=== PATIENT | female | born 1985 | race Caucasian/White ===

== ENCOUNTER 2017-12-22 08:47 | Emergency (ER) | payer OTHER ==
--- NOTE | 2017-12-22 09:30 | ED ---
Abdominal Pain HPI - General Chief Complaint: Abdominal Pain Stated Complaint: vomiting/diarrhea Time Seen by Provider: 12/22/17 09:00 Source: patient Mode of arrival: ambulatory - History of Present Illness Initial Comments: 32 year old female presents for diarrhea x 5 hours. She woke up at 0400 and vomited three times. She has had diarrhea 6-7 times since then. Describes the diarrhea as watery, and denies blood or mucus in the stool. States she has abdominal cramping that was worse this morning and is progressively improving. She also seems to be having BMs less frequently than she was this morning. She has not had a BM for the past 2 hours and has not vomited since 4 am. Denies difficulty urinating or pain/burning with urination. She denies having been around sick contacts, nursing homes, hospitals. No recent antibiotic use. 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 Last night she had a taco salad from a restaurant for dinner that she agrees could have caused her food poisoning. - Related Data Home Medications Medication Instructions Recorded Confirmed No Known Home Medications [No 12/22/17 12/22/17 Known Home Medications] Allergies Allergy/AdvReac Type Severity Reaction Status Date / Time No Known Allergies Allergy Verified 12/22/17 09:31 Review of Systems ROS Statement: Those systems with pertinent positive or pertinent negative responses have been documented in the HPI. ROS Other: All systems not noted in ROS Statement are negative. Past Medical History Past Medical History: No Reported History History of Any Multi-Drug Resistant Organisms: None Reported Past Surgical History: No Surgical Hx Reported Past Psychological History: No Psychological Hx Reported Smoking Status: Never smoker Past Alcohol Use History: Rare Past Drug Use History: None Reported General Exam Limitations: no limitations General appearance: alert, in no apparent distress Head exam: Present: atraumatic, normocephalic Eye exam: Present: normal appearance, PERRL, EOMI. Absent: scleral icterus, conjunctival injection, periorbital swelling ENT exam: Present: normal exam, mucous membranes moist Respiratory exam: Present: normal lung sounds bilaterally. Absent: respiratory distress, wheezes, rales, rhonchi, stridor Cardiovascular Exam: Present: regular rate, normal rhythm, normal heart sounds. Absent: systolic murmur, diastolic murmur, rubs, gallop, clicks GI/Abdominal exam: Present: soft, tenderness, normal bowel sounds. Absent: distended, guarding, rebound, rigid Psychiatric exam: Present: normal affect, normal mood Course Vital Signs 12/22/17 08:51 Temperature 98.4 F Pulse Rate 98 Respiratory 18 Rate Blood Pressure 130/79 O2 Sat by Pulse 100 Oximetry Medical Decision Making - Medical Decision Making 32 year old female presents with vomiting x 3 and diarrhea x 6 that started this morning at 0400. Vomiting has since subsided and she has only had one BM in the past 4 hours, which was formed. CBC and CMP came back WNL. CDiff can't be run due to formed stool. Patient states she is feeling better now and cramping has improved slightly. She is going home on return precautions and is told to stay hydrated by drinking fluids. - Lab Data Result diagrams: 12/22/17 09:34 12/22/17 09:34 Lab Results 12/22/17 12/22/17 Range/Units 09:34 09:34 WBC 9.2 (3.8-10.6) k/uL RBC 3.89 (3.80-5.40) m/uL Hgb 12.6 (11.4-16.0) gm/dL Hct 38.4 (34.0-46.0) % MCV 98.6 (80.0-100.0) fL MCH 32.5 (25.0-35.0) pg MCHC 32.9 (31.0-37.0) g/dL RDW 12.0 (11.5-15.5) % Plt Count 230 (150-450) k/uL Neutrophils % 81 % Lymphocytes % 8 % Monocytes % 7 % Eosinophils % 2 % Basophils % 0 % Neutrophils # 7.4 (1.3-7.7) k/uL Lymphocytes # 0.8 L (1.0-4.8) k/uL Monocytes # 0.6 (0-1.0) k/uL Eosinophils # 0.2 (0-0.7) k/uL Basophils # 0.0 (0-0.2) k/uL Sodium 142 (137-145) mmol/L Potassium 3.8 (3.5-5.1) mmol/L Chloride 108 H (98-107) mmol/L Carbon Dioxide 24 (22-30) mmol/L Anion Gap 10 mmol/L BUN 19 H (7-17) mg/dL Creatinine 0.54 (0.52-1.04) mg/dL Est GFR (MDRD) Af Amer >60 (>60 ml/min/1.73 sqM) Est GFR (MDRD) Non-Af >60 (>60 ml/min/1.73 sqM) Glucose 98 (74-99) mg/dL Calcium 8.7 (8.4-10.2) mg/dL Total Bilirubin 1.0 (0.2-1.3) mg/dL AST 17 (14-36) U/L ALT 27 (9-52) U/L Alkaline Phosphatase 70 (38-126) U/L Total Protein 6.3 (6.3-8.2) g/dL Albumin 3.6 (3.5-5.0) g/dL Disposition Clinical Impression: Viral enteritis Disposition: HOME SELF-CARE Instructions: Enteritis (ED) Additional Instructions: Return to ER if symptoms worse or do not improve. Referrals: None,Stated [Primary Care Provider] - 1-2 days
[2017-12-22 09:49] LABS: Basophils % (A) 0 %; Eosinophils # (A) 0.2 k/uL (0-0.7); Eosinophils % (A) 2 %; HCT 38.4 % (34.0-46.0); HGB 12.6 gm/dL (11.4-16.0); Lymphocytes # (A) 0.8 k/uL (1.0-4.8); Lymphocytes % (A) 8 %; MCH 32.5 pg (25.0-35.0); MCHC 32.9 g/dL (31.0-37.0); MCV 98.6 fL (80.0-100.0); Mean Platelet Volume 7.7; Monocytes # (A) 0.6 k/uL (0-1.0); Monocytes % (A) 7 %; Neutrophils # (A) 7.4 k/uL (1.3-7.7); Neutrophils % (A) 81 %; Platelet Count 230 k/uL (150-450); RBC 3.89 m/uL (3.80-5.40); WBC 9.2 k/uL (3.8-10.6)
[2017-12-22 10:00] LABS: ALT 27 U/L (9-52); AST 17 U/L (14-36); Albumin 3.6 g/dL (3.5-5.0); Alkaline Phosphatase 70 U/L (38-126); Anion Gap 10 mmol/L; Blood Urea Nitrogen 19 mg/dL (7-17); Calcium 8.7 mg/dL (8.4-10.2); Carbon Dioxide 24 mmol/L (22-30); Chloride 108 mmol/L (98-107); Glucose 98 mg/dL (74-99); Potassium 3.8 mmol/L (3.5-5.1); Sodium 142 mmol/L (137-145); Total Protein 6.3 g/dL (6.3-8.2)
[2017-12-22] MEDS ORDERED: ONDANSETRON 4 MG ODT STARTER PACK 2 TAB BTL PO STA (10:52)
[2017-12-22 11:10] VITALS: BP 110/69; PULSE 74; RESP 16; TEMP 97.9
== END 2017-12-22 11:10 | disposition home or self-care (01) ==
LOC: EC 08:47
DX: A08.4 Viral intestinal infection, unspecified (principal)
CPT/HCPCS: 36415; 80053; 85025; 87324; 87045; 87046; 99284; S0119

== ENCOUNTER 2018-06-28 15:30 | Emergency (ER) | payer OTHER ==
[2018-06-28 15:50] VITALS: BP 131/83; PULSE 91; RESP 18; TEMP 98.3
[2018-06-28] MEDS ORDERED: PENICILLIN V POTASSIUM 250 MG TAB PO STA (16:14)
--- NOTE | 2018-06-28 16:22 | ED ---
ENT HPI - General Chief complaint: Dental/Oral Stated complaint: dental abscess Time Seen by Provider: 06/28/18 16:04 Source: patient, RN notes reviewed Mode of arrival: ambulatory Limitations: no limitations - History of Present Illness Initial comments: This is a 32-year-old female who presents to the emergency department with chief complaint of a dental abscess. Patient reports left lower dental pain and mass for the past couple of days. Patient states that she does not have a dentist. She does state that she has had a fever. 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 Denies any other injuries. Denies chills, chest pain shortness of breath, abdominal pain, nausea or vomiting. - Related Data Previous Rx's Medication Instructions Recorded Penicillin V Potassium [Pen Vee K] 500 mg PO QID 10 Days tab 06/28/18 Allergies Allergy/AdvReac Type Severity Reaction Status Date / Time No Known Allergies Allergy Verified 06/28/18 15:48 Review of Systems ROS Statement: Those systems with pertinent positive or pertinent negative responses have been documented in the HPI. ROS Other: All systems not noted in ROS Statement are negative. Past Medical History Past Medical History: No Reported History History of Any Multi-Drug Resistant Organisms: None Reported Past Surgical History: No Surgical Hx Reported Past Psychological History: No Psychological Hx Reported Smoking Status: Never smoker Past Alcohol Use History: Rare Past Drug Use History: None Reported General Exam - General Exam Comments Initial Comments: General: Awake and alert, well-developed; in no apparent distress. HEENT: Head atraumatic, normocephalic. Pupils are equal, round and reactive to light. Extraocular movements intact. Oropharynx moist without erythema or exudate. Poor dentition throughout with multiple dental caries. Tenderness on palpation of tooth #19. There are no areas of fluctuance noted along the gumline. There is a small palpable mass without fluctuance when palpating along left lower mandible. Neck: Supple. Normal ROM. Cardiovascular: Regular rate and rhythm. No murmurs, rubs or gallops. Chest symmetrical. Respiratory: Lungs clear to auscultation bilaterally. No wheezes, rales or rhonchi. Normal respiratory effort with no use of accessory muscles. Musculoskeletal: Normal ROM, no tenderness bilateral upper and lower extremities. Ambulating normally. Skin: [place], warm and dry without rashes or lesions. Neurological: Alert and oriented x3. CN II-XII grossly intact. Speech is fluent and answers are appropriate. No focal neuro deficits. Psychiatric: Normal mood and affect. No overt signs of depression or anxiety noted. Limitations: no limitations Course Vital Signs 06/28/18 15:46 Temperature 98.3 F Pulse Rate 91 Respiratory 18 Rate Blood Pressure 131/83 O2 Sat by Pulse 98 Oximetry Medical Decision Making - Medical Decision Making This is a 32-year-old female who presents to the emergency department with chief complaint of dental abscess. Patient reports left lower dental pain and a mass on palpation along the left mandible. On physical examination, patient has poor dentition throughout. There is tenderness on palpation of tooth #19 with no areas of fluctuance noted. Patient started on penicillin VK. Recommended ibuprofen. Recommended following up with the dentist as she probably has an abscess at the root of the tooth. Vitals are stable and patient is in no acute distress. She will be discharged home at this time. She is in agreement with plan and voices understanding. All questions were answered. Disposition Clinical Impression: Dental abscess Disposition: HOME SELF-CARE Condition: Good Instructions: Dental Abscess (ED) Additional Instructions: Please take medications as prescribed. Please follow up with a dentist as soon as possible. Please follow up with primary care provider within 1-2 days. Return to emergency department if symptoms should worsen or any concerns arise. Please follow up with the [facility] dental [facility]. [address] [place] [address]. Phone number for new patients or [phone] for existing patients. Prescriptions: Penicillin V Potassium [Pen Vee K] 500 mg PO QID 10 Days tab Is patient prescribed a controlled substance at d/c from ED?: No Referrals: None,Stated [Primary Care Provider] - 1-2 days Time of Disposition: 16:21
== END 2018-06-28 16:34 | disposition home or self-care (01) ==
LOC: EC 15:30
DX: K04.7 Periapical abscess without sinus (principal); K08.89 Other specified disorders of teeth and supporting structures; K02.9 Dental caries, unspecified
CPT/HCPCS: 99282

== ENCOUNTER 2018-07-26 19:51 | Emergency (ER) | payer OTHER ==
[2018-07-26 20:09] VITALS: BP 134/84; PULSE 100; RESP 20; TEMP 98.6
[2018-07-26] MEDS ORDERED: TOBRAMYCIN 0.3% OPHTH DROPS 5 ML BTL BOTH EYES STA (20:42)
--- NOTE | 2018-07-26 20:43 | ED ---
Eye Problem HPI - General Chief complaint: Eye Problems Stated complaint: eye draining/itching Time Seen by Provider: 07/26/18 20:10 Source: patient, family Mode of arrival: ambulatory Limitations: no limitations - History of Present Illness Initial comments: 33-year-old female patient presents to the emergency department today for evaluation of bilateral eye itching, redness, and drainage. Patient states last 2 mornings when she woke up her eyes were crusted shut. States that today she developed redness to the both eyes. She denies any fever, chills, cough, nasal congestion, or nasal drainage. Denies any history of environmental ALLERGIES or similar symptoms. Denies any sick contacts. Patient denies any recent rash, shortness breath, chest pain, abdominal pain, nausea, vomiting, diarrhea, constipation, back pain, numbness, tingling, dizziness, weakness, hematuria, dysuria, urinary urgency, urinary frequency, headache, visual changes , or any other complaints. - Related Data Home Medications Medication Instructions Recorded Confirmed Ibuprofen [Advil] 400 mg PO Q8HR PRN 07/26/18 07/26/18 Naphazoline HCl/Glycerin [Clear 15 ml BOTH EYES DAILY 07/26/18 07/26/18 Eyes Max Redness Rlf Drp] Allergies Allergy/AdvReac Type Severity Reaction Status Date / Time No Known Allergies Allergy Verified 07/26/18 20:16 Review of Systems ROS Statement: Those systems with pertinent positive or pertinent negative responses have been documented in the HPI. ROS Other: All systems not noted in ROS Statement are negative. Past Medical History Past Medical History: No Reported History History of Any Multi-Drug Resistant Organisms: None Reported Past Surgical History: No Surgical Hx Reported Past Psychological History: No Psychological Hx Reported Smoking Status: Never smoker Past Alcohol Use History: Rare Past Drug Use History: None Reported General Exam Limitations: no limitations General appearance: alert, in no apparent distress, other (This is a well- developed, well-nourished adult female patient in no acute distress. Vital signs upon presentation are temperature 98.6F, pulse 100, respirations 20, blood pressure 134/84, pulse ox 99% on room air.) Eye exam: Present: normal appearance, PERRL, EOMI. Absent: scleral icterus, conjunctival injection, periorbital swelling ENT exam: Present: normal exam, normal oropharynx, mucous membranes moist Respiratory exam: Present: normal lung sounds bilaterally. Absent: respiratory distress, wheezes, rales, rhonchi, stridor Cardiovascular Exam: Present: regular rate, normal rhythm, normal heart sounds. Absent: systolic murmur, diastolic murmur, rubs, gallop, clicks Neurological exam: Present: alert, oriented X3, CN II-XII intact Psychiatric exam: Present: normal affect, normal mood Skin exam: Present: warm, dry, intact, normal color. Absent: rash Course Vital Signs 07/26/18 20:07 Temperature 98.6 F Pulse Rate 100 Respiratory 20 Rate Blood Pressure 134/84 O2 Sat by Pulse 99 Oximetry Medical Decision Making - Medical Decision Making 33-year-old female patient presented to the emergency department today for evaluation of bilateral eye redness, itching, and drainage. Physical examination was relatively unremarkable. Eye exam is normal at this time. 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 We did discuss possibility of ALLERGIC conjunctivitis. She is instructed take oral ALLERGY medication. She'll be given tobramycin eyedrops to use 4 times daily while awake. She is instructed to follow-up with ophthalmology for symptoms don 't improve over the next 1-2 days. Return parameters discussed in detail. She verbalizes understanding and agrees with this plan. Disposition Clinical Impression: Conjunctivitis Disposition: HOME SELF-CARE Condition: Good Instructions: Conjunctivitis (ED) Additional Instructions: Do 1 drop to each eye every 4-6 hours while awake. Follow-up with ophthalmology for symptoms don't improve over the next 1-2 days. Consider taking an oral ALLERGY medication. Return here immediately for any new, worsening, or concerning symptoms. Is patient prescribed a controlled substance at d/c from ED?: No Referrals: None,Stated [Primary Care Provider] - 1-2 days Sanjay Andrea MD [STAFF PHYSICIAN] - 1-2 days Time of Disposition: 20:43
== END 2018-07-26 21:03 | disposition home or self-care (01) ==
LOC: EC 19:51
DX: H10.9 Unspecified conjunctivitis (principal); Z79.899 Other long term (current) drug therapy
CPT/HCPCS: 99283

== ENCOUNTER 2018-10-01 10:07 | Emergency (ER) | payer OTHER ==
[2018-10-01 10:19] VITALS: RESP 18
--- NOTE | 2018-10-01 11:21 | ED ---
General Adult HPI - General Chief complaint: Skin/Abscess/Foreign Body Stated complaint: rash Time Seen by Provider: 10/01/18 10:45 Source: patient, RN notes reviewed Mode of arrival: ambulatory Limitations: no limitations - History of Present Illness Initial comments: Patient 33-year-old female presenting to the emergency room today with a chief complaint of a rash over the last week. She does admit that it started down by her toes. She states she was told it was athlete's foot. She's tried some topical cream but has become worse. She states her ankles are swollen there is increased itchiness coming up to the knees bilaterally. Also a few spots on her forearms bilaterally. Patient states she's tried some [id number] medications with little relief. 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 Patient unsure if it's related. She denies any other ALLERGIES. Patient denies any recent fever, chills, shortness of breath, chest pain, back pain, abdominal pain, nausea or vomiting, numbness or tingling, headaches or visual changes, or any other complaints. - Related Data Home Medications Medication Instructions Recorded Confirmed Calamine/Zinc Oxide Lotion 1 applic TOPICAL QID PRN 10/01/18 10/01/18 [Calamine Lotion] Previous Rx's Medication Instructions Recorded Mupirocin 2% Oint [Bactroban Oint] 1 applic TOPICAL TID #1 gm 10/01/18 Sulfamethox-Tmp 800-160Mg [Bactrim 1 tab PO Q12HR #20 tab 10/01/18 DS 800-160 mg] diphenhydrAMINE [Benadryl] 1 - 2 tab PO Q6HR PRN #30 capsule 10/01/18 predniSONE 50 mg PO DAILY #5 tab 10/01/18 Allergies Allergy/AdvReac Type Severity Reaction Status Date / Time No Known Allergies Allergy Verified 10/01/18 10:52 Review of Systems ROS Statement: Those systems with pertinent positive or pertinent negative responses have been documented in the HPI. ROS Other: All systems not noted in ROS Statement are negative. Past Medical History Past Medical History: No Reported History History of Any Multi-Drug Resistant Organisms: None Reported Past Surgical History: No Surgical Hx Reported Past Psychological History: No Psychological Hx Reported Smoking Status: Never smoker Past Alcohol Use History: Rare Past Drug Use History: None Reported General Exam - General Exam Comments Initial Comments: General: The patient is awake and alert, in no distress, and does not appear acutely ill. Eye: Pupils are equal, round and reactive to light, extra-ocular movements are intact. No nystagmus. There is normal conjunctiva bilaterally. No signs of icterus. Ears, nose, mouth and throat: There are moist mucous membranes and no oral lesions. Musculoskeletal: Normal ROM, no tenderness. Strength 5/5. Sensation intact. Pulses equal bilaterally 2+. Neurological: A&O x 3. CN II-XII intact, There are no obvious motor or sensory deficits. Coordination appears grossly intact. Speech is normal. Skin: Patient does have an erythematous rash to the lower legs bilaterally. This excoriated from itching. A few spots seen to the forearms. Small papular like lesions. Some crusting over the top on the right. Psychiatric: Cooperative, appropriate mood & affect, normal judgment. Limitations: no limitations Course Vital Signs 10/01/18 10:17 Temperature 98.1 F Pulse Rate 96 Respiratory 18 Rate Blood Pressure 128/67 O2 Sat by Pulse 99 Oximetry Medical Decision Making - Medical Decision Making Patient will be started on antibiotics, steroids, Benadryl for her symptoms. Symptoms seem to be a contact dermatitis with secondary infection. Patient advised follow-up bulk gas specialist over the next 2 days return if symptoms increase or worsen. Disposition Clinical Impression: Contact dermatitis Disposition: HOME SELF-CARE Condition: Good Instructions: Contact Dermatitis (ED) Additional Instructions: Please use medication as discussed. Please follow-up with bulk gas specialist/family doctor in the next 2 days of symptoms have not improved. Please return to emergency room if the symptoms increase or worsen or for any other concerns. Prescriptions: diphenhydrAMINE [Benadryl] 1 - 2 tab PO Q6HR PRN #30 capsule PRN Reason: Allergic Reaction Mupirocin 2% Oint [Bactroban Oint] 1 applic TOPICAL TID #1 gm predniSONE 50 mg PO DAILY #5 tab Sulfamethox-Tmp 800-160Mg [Bactrim DS 800-160 mg] 1 tab PO Q12HR #20 tab Is patient prescribed a controlled substance at d/c from ED?: No Referrals: None,Stated [Primary Care Provider] - 1-2 days Mallika Michelle MD [STAFF PHYSICIAN] - 1-2 days Time of Disposition: 11:20
[2018-10-01 11:49] VITALS: BP 135/89; PULSE 78; TEMP 98.2
== END 2018-10-01 11:47 | disposition home or self-care (01) ==
LOC: EC 10:07
DX: L25.9 Unspecified contact dermatitis, unspecified cause (principal)
CPT/HCPCS: 99282

== ENCOUNTER 2019-07-06 10:48 | Emergency (ER) | payer OTHER ==
[2019-07-06 11:02] VITALS: BP 141/83; PULSE 82; RESP 18; TEMP 98.2
[2019-07-06] MEDS ORDERED: PENICILLIN VK 500MG STARTER 4 TAB BTL PO STA (11:39)
[2019-07-06] MEDS ORDERED: ACET/COD 300 MG/30 MG STARTER PACK 6 TAB BTL PO STA (11:39)
--- NOTE | 2019-07-06 11:39 | ED ---
ENT HPI - General Chief complaint: Dental/Oral Stated complaint: Dental Pain/headache Time Seen by Provider: 07/06/19 11:05 Source: patient, RN notes reviewed, old records reviewed Mode of arrival: ambulatory Limitations: no limitations - History of Present Illness Initial comments: Patient is a 34 year old female with one week of dental pain. She reports that she has broken her lower right molars and is having pain from them. She states that she has no trismus, fever. She does not have a dentist. - Related Data Previous Rx's Medication Instructions Recorded Penicillin V Potassium [Pen Vee K] 500 mg PO QID #40 tablet 07/06/19 Allergies Allergy/AdvReac Type Severity Reaction Status Date / Time No Known Allergies Allergy Verified 07/06/19 11:07 Review of Systems ROS Statement: Those systems with pertinent positive or pertinent negative responses have been documented in the HPI. ROS Other: All systems not noted in ROS Statement are negative. Constitutional: Denies: fever, chills Eyes: Denies: eye pain ENT: Reports: dental pain Respiratory: Denies: cough Cardiovascular: Denies: chest pain Endocrine: Denies: fatigue Gastrointestinal: Denies: nausea Skin: Denies: rash Neurological: Denies: headache Hematological/Lymphatic: Denies: easy bleeding Past Medical History Past Medical History: No Reported History History of Any Multi-Drug Resistant Organisms: None Reported Past Surgical History: No Surgical Hx Reported Past Psychological History: No Psychological Hx Reported Smoking Status: Never smoker Past Alcohol Use History: Occasional Past Drug Use History: None Reported General Exam - General Exam Comments Initial Comments: 34 year old female, no distress. Limitations: no limitations General appearance: alert, in no apparent distress Head exam: Present: atraumatic, normocephalic, normal inspection Eye exam: Present: normal appearance, PERRL, EOMI. Absent: scleral icterus, conjunctival injection, periorbital swelling ENT exam: Present: normal exam, mucous membranes moist. Absent: normal oropharynx (broken lower right molar. Multiple dental caries throughout all teeth. Gingival erythema tooth 23.) Neck exam: Present: normal inspection. Absent: tenderness, meningismus, lymphadenopathy Respiratory exam: Present: normal lung sounds bilaterally. Absent: respiratory distress, wheezes, rales, rhonchi, stridor Cardiovascular Exam: Present: regular rate, normal rhythm, normal heart sounds. Absent: systolic murmur, diastolic murmur, rubs, gallop, clicks GI/Abdominal exam: Present: soft, normal bowel sounds. Absent: distended, tenderness, guarding, rebound, rigid Psychiatric exam: Present: normal affect, normal mood Skin exam: Present: warm, dry, intact, normal color. Absent: rash Course Vital Signs 07/06/19 10:59 Temperature 98.2 F Pulse Rate 82 Respiratory 18 Rate Blood Pressure 141/83 O2 Sat by Pulse 97 Oximetry Medical Decision Making - Medical Decision Making 34 year old female with right lower dental pain. She has broken teeth and gingival irriatiton on tooth 23. Patient advised to follow up with dentist. Given starter pack for pain medication and Pen V K. Discussed return parameters. Disposition Clinical Impression: Dental caries, Broken tooth Disposition: HOME SELF-CARE Condition: Good Instructions (If sedation given, give patient instructions): Toothache (ED) Additional Instructions: [facility] [address] [place] [address] [phone] (existing clients only) For new clients: [phone] 1st consult: $50 (includes Xrays) Usually 30% less then private dentist for visits after. [facility] [employer] [facility] Have to pay $50 for Xrays anmd rest is covered. [phone] Prescriptions: Penicillin V Potassium [Pen Vee K] 500 mg PO QID #40 tablet Is patient prescribed a controlled substance at d/c from ED?: No Referrals: None,Stated [Primary Care Provider] - 1-2 days Time of Disposition: 11:39
== END 2019-07-06 11:56 | disposition home or self-care (01) ==
LOC: EC 10:48
DX: K02.9 Dental caries, unspecified (principal); S02.5XXA Fracture of tooth (traumatic), initial encounter for closed fracture; X58.XXXA Exposure to other specified factors, initial encounter
CPT/HCPCS: 99283

== ENCOUNTER 2019-12-12 07:47 | Emergency (ER) | payer OTHER ==
[2019-12-12 07:59] VITALS: BP 129/77; PULSE 81; RESP 20; TEMP 97.9
[2019-12-12] MEDS ORDERED: IBUPROFEN 600 MG STARTER PACK 4 TAB BTL PO STA (08:08)
[2019-12-12] MEDS ORDERED: ACET/COD 300 MG/30 MG STARTER PACK 6 TAB BTL PO STA (08:08)
[2019-12-12] MEDS ORDERED: PENICILLIN VK 500MG STARTER 4 TAB BTL PO STA (08:10)
--- NOTE | 2019-12-12 08:13 | ED ---
ENT HPI - General Chief complaint: Dental/Oral Stated complaint: Toothache Time Seen by Provider: 12/12/19 08:00 Source: patient, RN notes reviewed Mode of arrival: ambulatory Limitations: no limitations - History of Present Illness Initial comments: 34-year-old female presents emergency Department with chief complaint of right lower dental pain. She states has been on and off bothersome for last 2 weeks but states today the pain was worse and she missed work. Patient reports no fever, chills, night sweats, difficult swallowing or any trismus type symptoms. Patient states that she has poor dentition she currently does not have insurance and has not seen a dentist for this. Patient states that she's had infections in the past denies any known drug ALLERGIES. Patient denies any other complaints at this time. - Related Data Previous Rx's Medication Instructions Recorded Penicillin V Potassium [Pen Vee K] 500 mg PO QID #40 tablet 07/06/19 Penicillin V Potassium [Pen Vee K] 500 mg PO QID #40 tablet 12/12/19 Allergies Allergy/AdvReac Type Severity Reaction Status Date / Time No Known Allergies Allergy Verified 07/06/19 11:07 Review of Systems ROS Statement: Those systems with pertinent positive or pertinent negative responses have been documented in the HPI. ROS Other: All systems not noted in ROS Statement are negative. Past Medical History Past Medical History: No Reported History History of Any Multi-Drug Resistant Organisms: None Reported Past Surgical History: No Surgical Hx Reported Past Psychological History: No Psychological Hx Reported Smoking Status: Never smoker Past Alcohol Use History: Occasional Past Drug Use History: None Reported General Exam Limitations: no limitations General appearance: alert, in no apparent distress Head exam: Present: atraumatic, normocephalic, normal inspection Eye exam: Present: normal appearance, PERRL, EOMI. Absent: scleral icterus, conjunctival injection, periorbital swelling ENT exam: Present: mucous membranes moist. Absent: normal oropharynx (Multiple dental caries, no drainable abscess though there are some erythema and right lower aspect minimal swelling no trismus patient swan secretions well) Neck exam: Present: normal inspection, full ROM. Absent: tenderness, meningismus, lymphadenopathy Respiratory exam: Present: normal lung sounds bilaterally. Absent: respiratory distress, wheezes, rales, rhonchi, stridor Cardiovascular Exam: Present: regular rate, normal rhythm, normal heart sounds. Absent: systolic murmur, diastolic murmur, rubs, gallop, clicks Course Vital Signs 12/12/19 07:53 Temperature 97.9 F Pulse Rate 81 Respiratory 20 Rate Blood Pressure 129/77 O2 Sat by Pulse 100 Oximetry Medical Decision Making - Medical Decision Making 34-year-old presented for dental pain. Patient has poor dentition will be started on Pen-Vee K advised to continue ibuprofen. She is advised about the dental clinic or dentist return parameters were discussed. Disposition Clinical Impression: Toothache, Dental infection Disposition: HOME SELF-CARE Condition: Stable Instructions (If sedation given, give patient instructions): Toothache (ED) Additional Instructions: Please return to the Emergency Department if symptoms worsen or any other concerns.Please follow up with the [facility] dental clinic. [facility] [place] [address]. Phone number for new patients or [phone] for existing patients. Prescriptions: Penicillin V Potassium [Pen Vee K] 500 mg PO QID #40 tablet Is patient prescribed a controlled substance at d/c from ED?: No Referrals: None,Stated [Primary Care Provider] - 1-2 days Time of Disposition: 08:13
== END 2019-12-12 08:14 | disposition home or self-care (01) ==
LOC: EC 07:47
DX: K04.7 Periapical abscess without sinus (principal)
CPT/HCPCS: 99282

== ENCOUNTER 2023-05-29 14:14 | Emergency (ER) | payer OTHER ==
[2023-05-29 14:21] VITALS: RESP 16
--- NOTE | 2023-05-29 14:31 | ED ---
Chest Pain HPI - General Source: patient, RN notes reviewed Mode of arrival: wheelchair Limitations: no limitations - History of Present Illness MD Complaint: chest pain <Angeles Shipman - Last Filed: 05/29/23 14:30> - General Source: patient, family, RN notes reviewed, old records reviewed <Casron Ruiz - Last Filed: 05/29/23 18:18> - General Chief Complaint: Chest Pain Stated Complaint: Chest Pain Time Seen by Provider: 05/29/23 14:28 - History of Present Illness Initial Comments: This is a 37-year-old female who presents emergency department for chest pain. States that this is on the right side of her chest. There is no radiation of the pain. Denies any associated shortness of breath. Also denies any cardiac history. (Angeles Shipman) Patient is a 37-year-old female with past medical history remarkable for anxiety who presents emergency Department complaining of right-sided chest pain. He has been ongoing since Thursday. Is currently Thursday. States worse with deep inspiration. Worse with palpation. Worse when laying down in certain positions. Seems to come and go, however has not fully gone away. He is not expresses before. Is concerned maybe her heart. Also endorses being anxious at this time as well. Denies any shortness of breath. Denies any fevers, chills, cough, abdominal pain, nausea, vomiting. No known sick contacts. No history of blood clots in herself or family members. Denies any lower extremity edema. No recent long distance travel. Is not on blood thinners. Present for further evaluation at this time. Patient was originally evaluated as a quick note in triage. Workup was started while the patient was in triage.Denies any trauma to the chest. (Carson Ruiz) - Related Data Home Medications Medication Instructions Recorded Confirmed Aspirin 324 mg PO ONCE PRN 05/29/23 05/29/23 Allergies Allergy/AdvReac Type Severity Reaction Status Date / Time No Known Allergies Allergy Verified 05/29/23 18:02 Review of Systems ROS Other: All systems not noted in ROS Statement are negative. <Angeles Shipman - Last Filed: 05/29/23 14:30> ROS Other: All systems not noted in ROS Statement are negative. <Carson Ruiz - Last Filed: 05/29/23 18:18> ROS Statement: Those systems with pertinent positive or pertinent negative responses have been documented in the HPI. Review of Systems: CONST: Denies fever EYES: Denies blurry vision ENT: Denies nasal congestion C/V: Endorses chest wall pain RESP: Denies shortness of breath GI: Denies abdominal pain : Denies dysuria SKIN: Denies rash. MSK: Denies joint pain. NEURO: Denies headache (Carson Ruiz) EKG Findings - EKG Comments: EKG Findings:: 12-lead Electrocardiogram Interpretation Note. EKG was reviewed and interpreted by myself. 12-lead ECG performed at 1428 is interpreted by me as revealing normal sinus rhythm at a rate of 68 beats per minute. [place] is rightward deviated. IA interval is 119 ms, QRS duration is 80 ms, QTc is 419 ms.. There were no ST or T wave abnormalities to suggest myocardial ischemia or injury. R wave progression across the precordium was satisfactory. By my interpretation this EKG is non-diagnostic for acute ischemia. - EKG Results: EKG: interpreted by ERMD <Carson Ruiz - Last Filed: 05/29/23 18:18> Past Medical History Past Medical History: No Reported History History of Any Multi-Drug Resistant Organisms: None Reported Past Surgical History: No Surgical Hx Reported Past Psychological History: No Psychological Hx Reported Smoking Status: Former smoker, Never smoker Past Alcohol Use History: Occasional Past Drug Use History: None Reported <Angeles Shipman - Last Filed: 05/29/23 14:30> General Exam Limitations: no limitations <Angeles Shipman - Last Filed: 05/29/23 14:30> <Carson Ruiz - Last Filed: 05/29/23 18:18> - General Exam Comments Initial Comments: Visual Physical Exam Vital signs reviewed General: Well-appearing, nontoxic, no acute distress. Head: Normocephalic, atraumatic Eyes: PERRLA, EOMI ENT: Airway patent Chest: Nonlabored breathing Skin: No visual rash, normal skin tone Neuro: Alert and oriented 3 Musculoskeletal: No gross abnormalities (Angeles Shipman) General: Appears in no acute distress. Appears mildly anxious. HEAD: Normal with no signs of head trauma. EYES: PERRLA, EOMI, conjunctiva normal, no discharge. ENT: Hearing grossly intact, normal oropharynx. RESPIRATORY: Clear breath sounds bilaterally. No wheezes, rales, or rhonchi. C/V: Regular rate and rhythm. S1 and S2 auscultated, no edema, peripheral pulses 2+ and intact throughout ABD: Abd is soft, nontender, nondistended EXT: Normal range of motion, no obvious deformity. Patient has reproducible sternal as well as just to the right of the sternal chest pain. I suspect chest wall pain, possible costochondritis or chest wall strain. SKIN: No rashes or lesions observed on exposed skin. NEURO: Alert and oriented 4. No focal deficits. (Carson Ruiz) Course Vital Signs 05/29/23 05/29/23 05/29/23 14:18 16:48 16:49 Temperature 97.8 F 98.7 F Pulse Rate 70 62 Respiratory 16 16 Rate Blood Pressure 150/90 136/88 136/88 O2 Sat by Pulse 100 100 100 Oximetry 05/29/23 17:30 Temperature 98.1 F Pulse Rate 78 Respiratory Rate Blood Pressure 150/102 O2 Sat by Pulse 100 Oximetry Chest Pain MDM <Angeles Shipman - Last Filed: 05/29/23 14:30> <Carson Ruiz - Last Filed: 05/29/23 18:18> - MDM I performed the QuickNote portion of this chart. Signed Angeles Shipman PA-C. (nAgeles Shipman) Was pt. sent in by a medical professional or institution ([facility]ITT[facility] Dowell, JEWEL[facility] ENAMELER, urgent care, hospital, or [place] [facility] [place] facility...) When possible be specific @ -No Did you speak to anyone other than the patient for history (EMS, parent, family, police, friend...)? What history was obtained from this source @ -No Did you review nursing and triage notes (agree or disagree)? Why? @ -I reviewed and agree with nursing and triage notes Were old charts reviewed (outside hosp., previous admission, EMS record, old EKG, old radiological studies, urgent care reports/EKG's, [place] health [facility] facility records)? Report findings @ -Reviewed quick note from earlier. Differential Diagnosis (chest pain, altered mental status, abdominal pain women, abdominal pain men, vaginal bleeding, weakness, fever, dyspnea, syncope, headache, dizziness, GI bleed, back pain, seizure, CVA, palpatations, mental health, musculoskeletal)? @ -Differential Chest Pain: Stable Angina, Unstable Angina, STEMI, NSTEMI Aortic Dissection, Pneumothorax, Musculoskeletal, Esophageal Spasm GERD, Cholecystitis, Pancreatitis, Zoster, this is not meant to be an all-inclusive list. EKG interpreted by me (3pts min.). @ -As above X-rays interpreted by me (1pt min.). @ -Chest x-ray reveals no obvious acute cardio or process. CT interpreted by me (1pt min.). @ -None done U/S interpreted by me (1pt. min.). @ -None done What testing was considered but not performed or refused? (CT, X-rays, U/S, labs)? Why? @ -None What meds were considered but not given or refused? Why? @ -None Did you discuss the management of the patient with other professionals (professionals i.e. , PA, JEWELRY ENAMELER, lab, RT, psych nurse, social worker palliative care, data warehouse administrator, teacher, disbursing officer, rifle case repairer)? Give summary @ -No Was smoking cessation discussed for >3mins.? @ -No Was critical care preformed (if so, how long)? @ -No Were there social determinants of health that impacted care today? How? (Homelessness, low income, unemployed, alcoholism, drug addiction, transportation, low edu. Level, literacy, decrease access to med. care, m[facility], rehab)? @ -No Was there de-escalation of care discussed even if they declined (Discuss DNR or withdrawal of care, Hospice)? DNR status @ -No What co-morbidities impacted this encounter? (DM, HTN, Smoking, COPD, CAD, Cancer, CVA, ARF, Chemo, Hep., AIDS, mental health diagnosis, sleep apnea, morbid obesity)? @ -None Was patient admitted / discharged? Hospital course, mention meds given and route, prescriptions, significant lab abnormalities, going to OR and other pertinent info. @ -Based on the patient's presentation and physical exam, presents with a pleuritic chest pain that appears to be more of a chest wall pain. Work up was started in triage. This includes troponin, EKG, chest x-ray. Workup is unremarkable. I did discuss with her that it does appear to be chest wall pain as it is reproducible on palpation and with movement. I would like to obtain a screening d-dimer just in case. Pain is been ongoing all week. Patient's heart score is low, at approximately 1. Vital signs within acceptable limits. Patient will be given IV Toradol for pain control. She was in agreement this plan. Patient's pain is improved. She states she does feel extremely anxious regarding this. She has a history of anxiety. Believes it is also playing a role in her symptoms. Patient's d-dimer is within normal limits. I discussed her workup including the undetectable troponin as well as normal d-dimer and normal EKG. I believe is safe for her to be discharged home at this time. She was in agreement this plan. I instructed the patient to follow up with their PCP in the next 1-3 days. I explained that the patient should return to the emergency department if they experience any worsening symptoms. Strict return precautions were discussed with the patient. The patient expressed understanding of these instructions. I answered all questions that the patient had. The patient was discharged home in good condition with their prescriptions and follow up information. Undiagnosed new problem with uncertain prognosis? @ -No Drug Therapy requiring intensive monitoring for toxicity (Heparin, Nitro, Insulin, Cardizem)? @ -No Were any procedures done? @ -No Diagnosis/symptom? @ -Chest wall pain Acute, or Chronic, or Acute on Chronic? @ -Acute Uncomplicated (without systemic symptoms) or Complicated (systemic symptoms)? @ -Uncomplicated Side effects of treatment? @ -No Exacerbation, Progression, or Severe Exacerbation? @ -No Poses a threat to life or bodily function? How? (Chest pain, [place], [place], pneumonia, PE, COPD, DKA, ARF, appy, cholecystitis, CVA, Diverticulitis, Homicidal, Suicidal, threat to staff... and all critical care pts) @ -No (Carson Ruiz) Disposition <Angeles Shipman - Last Filed: 05/29/23 14:30> Is patient prescribed a controlled substance at d/c from ED?: No Time of Disposition: 17:38 <Carson Ruiz - Last Filed: 05/29/23 18:18> Clinical Impression: Chest wall pain Disposition: HOME SELF-CARE Condition: Good Instructions (If sedation given, give patient instructions): Costochondritis (ED), Chest Wall Pain (ED) Referrals: None,Stated [Primary Care Provider] - 1-2 days Forms: Area PCPs
[2023-05-29 14:56] LABS: Basophils % (A) 0 %; Eosinophils # (A) 0.1 k/uL (0-0.7); Eosinophils % (A) 1 %; HCT 38.9 % (34.0-46.0); HGB 13.6 gm/dL (11.4-16.0); Lymphocytes # (A) 1.7 k/uL (1.0-4.8); Lymphocytes % (A) 24 %; MCH 34.4 pg (25.0-35.0); MCHC 34.8 g/dL (31.0-37.0); MCV 98.7 fL (80.0-100.0); Mean Platelet Volume 9.5; Monocytes # (A) 0.3 k/uL (0-1.0); Monocytes % (A) 4 %; Neutrophils # (A) 4.9 k/uL (1.3-7.7); Neutrophils % (A) 69 %; Platelet Count 198 k/uL (150-450); RBC 3.94 m/uL (3.80-5.40); RDW 11.5 % (11.5-15.5); WBC 7.1 k/uL (3.8-10.6)
[2023-05-29 15:07] LABS: INR 0.9 (<1.2); Prothrombin Time 9.9 sec (9.0-12.0)
[2023-05-29 15:18] LABS: ALT 18 U/L (4-34); AST 23 U/L (14-36); African American GFR (CKD) >90 (>60 ml/min/1.73 sqM); Albumin 4.2 g/dL (3.5-5.0); Alkaline Phosphatase 83 U/L (38-126); Anion Gap 10 mmol/L; Blood Urea Nitrogen 6 mg/dL (7-17); Calcium 8.7 mg/dL (8.4-10.2); Carbon Dioxide 23 mmol/L (22-30); Chloride 104 mmol/L (98-107); Glucose 92 mg/dL (74-99); Magnesium 2.4 mg/dL (1.6-2.3); Non-African American GFR(CKD) >90 (>60 ml/min/1.73 sqM); Potassium 3.8 mmol/L (3.5-5.1); Sodium 137 mmol/L (137-145); Total Bilirubin 0.4 mg/dL (0.2-1.3); Total Protein 7.4 g/dL (6.3-8.2)
[2023-05-29] MEDS ORDERED: KETOROLAC 15 MG/ML 1 ML VIAL IVP STA (16:34)
--- NOTE | 2023-05-29 17:20 | XR ---
EXAMINATION TYPE: XR chest 2V DATE OF EXAM: 05/29/2023 COMPARISON: None INDICATION: Chest pain TECHNIQUE: Frontal and lateral views of the chest are obtained. FINDINGS: The heart size is normal. The pulmonary vasculature is normal. The lungs are clear. IMPRESSION: 1. No acute pulmonary process.
[2023-05-29 17:59] VITALS: BP 150/102; PULSE 78; TEMP 98.1
== END 2023-05-29 18:11 | disposition home or self-care (01) ==
LOC: EC 14:14
DX: R07.89 Other chest pain (principal); Z87.891 Personal history of nicotine dependence; Z79.82 Long term (current) use of aspirin
CPT/HCPCS: 36415; 93005; 85379; 80053; 83735; 84484; 85025; 85610; 85730; 71046; 99285; 96374; J1885